=== PATIENT | female | born 1960 | race Caucasian/White ===

== ENCOUNTER 2018-11-15 21:33 | Emergency (ER) | payer BC ==
[~2018-11-15] VITALS: Ht 170.2 cm; Wt 90.7 kg
[~2018-11-15 21:33] MED LIST: LANTUS; LEXAPRO; TRULICITY
[2018-11-15] MEDS ORDERED: BACTRIM DS TAB1 EACH PO ×2 (21:52→22:23)
[2018-11-15] MEDS ORDERED: NORCO 5-325 TA1 EACH PO (21:52)
[2018-11-15 22:39] VITALS: BP 170/92
== END 2018-11-15 23:01 | disposition home or self-care (01) ==
LOC: M.ERS 21:33
DX: L02.11 Cutaneous abscess of neck (principal); E11.9 Type 2 diabetes mellitus without complications; Z98.890 Other specified postprocedural states; Z88.5 Allergy status to narcotic agent

== ENCOUNTER → 2019-08-24 | Outpatient (CLI) | payer BC ==
[~2019-08-24] MED LIST changes: +BACTRIM DS TAB1 EACH PO; +NORCO 5-325 TA1 EACH PO
== END ==
LOC: M.RAD 08:44
DX: Z12.31 Encounter for screening mammogram for malignant neoplasm of breast (principal)

== ENCOUNTER 2020-06-04 18:54 | Emergency (ER) | payer OTHER, BC ==
[~2020-06-04] VITALS: Ht 170.2 cm; Wt 113.4 kg
[2020-06-04] MEDS ORDERED: HUMALOG100 UNIT/1 SUBQ (19:02)
[2020-06-04] MEDS ORDERED: LEVEMIR100 UNIT/1 SUBQ (19:02)
[2020-06-04] MEDS ORDERED: APAP W/CODEINE1 TA2 PO (19:37)
[2020-06-04 21:14] VITALS: BP 174/83
== END 2020-06-04 21:15 | disposition home or self-care (01) ==
LOC: M.ERS 18:54
DX: S16.1XXA Strain of muscle, fascia and tendon at neck level, initial encounter (principal); R51.9 Headache, unspecified; Z88.6 Allergy status to analgesic agent; Z90.710 Acquired absence of both cervix and uterus; V89.2XXA Person injured in unspecified motor-vehicle accident, traffic, initial encounter; Y93.89 Activity, other specified; Y92.89 Other specified places as the place of occurrence of the external cause; Y99.8 Other external cause status

== ENCOUNTER → 2021-04-04 | Outpatient (CLI) | payer BC ==
[~2021-04-04] MED LIST changes: +APAP W/CODEINE1 TA2 PO; +HUMALOG100 UNIT/1 SUBQ; +LEVEMIR100 UNIT/1 SUBQ
== END ==
LOC: M.RAD 10:40
PROVIDERS: ATTEND Family Medicine
DX: Z12.31 Encounter for screening mammogram for malignant neoplasm of breast (principal)

== ENCOUNTER → 2021-05-09 | Outpatient (CLI) | payer BC ==
--- NOTE | 2021-05-30 14:14 | SLEEP ---
[address] [address] SLEEP STUDY REPORT Name: RINKU BETTS Room: [facility].#: [id number] Admission: 05/09/21 Attend Phys: Edward Szymanski Discharge: Date of : 62 Report #: [id number] THIS REPORT FOR: cc: Bee Henson Linda J. DO Pervez, Adeel MD ~ DATE OF STUDY: 05/09/2021 HOME SLEEP STUDY INTERPRETATION: Total duration of the study is 434 minutes. During this time duration, we recorded a very large number of sleep related respiratory events. These included 395 obstructive apneas, 41 central apneas, 73 mixed apneas and 25 hypopneas. Overall, apnea-hypopnea index of 73.8. Body position data indicates the patient was in the supine position for 418 minutes. Rest of the time, he was on the right side. There is no significant positional variation. There is severe nocturnal hypoxemia recorded. The patient's O2 saturation was less than 90% for 57 minutes and less than 80% that is in the 70s for 23 minutes. There are in fact desaturations up to 56% recorded. The mean heart rate is 95. IMPRESSION: 1. Very severe obstructive sleep apnea with an apnea-hypopnea index of 73.8. There is no significant positional variation recorded. 2. There is severe nocturnal hypoxemia as described above. The patient's O2 saturation is in the 70s for 23 minutes during the sleep study. There is in fact desaturation up to 56% recorded. RECOMMENDATIONS: Due to the presence of very severe obstructive sleep apnea as well as nocturnal hypoxemia, I do not recommend the use of a CPAP auto titrated device. Instead, I recommend that we proceed with an in-lab sleep study for positive airway pressure titration. <ELECTRONICALLY SIGNED> By: Joseph Lyn MD 05/30/21 1414 Aisabell Lyn MD /nt
== END ==
LOC: M.PUL 09:00
PROVIDERS: ATTEND Family Medicine
DX: G47.33 Obstructive sleep apnea (adult) (pediatric) (principal); G47.31 Primary central sleep apnea; I10 Essential (primary) hypertension; G47.36 Sleep related hypoventilation in conditions classified elsewhere